=== PATIENT | male | born 1940 | race Caucasian/White ===

== ENCOUNTER 2019-05-12 01:50 | Day surgery (SDC) | payer MEDICARE, SELFPAY ==
[2019-05-05 13:26] VITALS: BMI 26.9
[2019-05-12 06:34] VITALS: BP 154/90; PULSE 70; RESP 18; TEMP 36.8; O2SAT 97
[2019-05-12] MEDS: LACTATED RINGERS 1,000 ML 150 ML IV CONT (06:40)
--- NOTE | 2019-05-12 07:02 | P.PNAN_ITS ---
Anes - Initial Pre Proc Eval Procedure: Operation Date: 05/12/19 07:30 Proposed Procedures p Screening Colonoscopy - Mariano Culp MD Date/Time: 05/12/19 07:02 Surgeon: Mariano Culp MD Pre Op Diagnosis: Neoplasm Screening Patient Data Age: 78 Gender: M Height: 1.78 m Weight: 86.9 kg Last Vital Signs Temp 36.8 C 05/12/19 06:34 Pulse 70 05/12/19 06:34 Resp 18 05/12/19 06:34 BP 154/90 H 05/12/19 06:34 Pulse Ox 97 05/12/19 06:34 Allergies Allergy/AdvReac Type Severity Reaction Status Date / Time No Known Allergies Allergy Verified 05/05/19 13:20 Home Medications Medication Instructions Recorded Confirmed Type ascorbic acid (vitamin C) [Vitamin 1 g PO DAILY 05/05/19 05/05/19 History C] cholecalciferol (vitamin D3) 2,000 unit PO DAILY 05/05/19 05/05/19 History [Vitamin D3] cyanocobalamin (vitamin B-12) 1,000 mcg PO DAILY 05/05/19 05/05/19 History [Vitamin B-12] dextroamphetamine-amphetamine 30 mg PO QAM 05/05/19 05/05/19 History [Adderall XR] dextroamphetamine-amphetamine 10 mg PO BID 05/05/19 05/05/19 History [Adderall] donepezil 10 mg PO DAILY 05/05/19 05/05/19 History escitalopram oxalate 10 mg PO DAILY 05/05/19 05/05/19 History tamsulosin 0.4 mg PO DAILY 05/05/19 05/05/19 History Patient hx anesthesia problems: none Family hx anesthesia problems: none [facility] Past Medical History Medical History (Updated 05/12/19 @ 07:03 by David Mann MD) Alzheimer's disease Anxiety Depression Narcolepsy Social History Social History Smoking status: Former smoker Smoking end date: 04/07/98 Alcohol intake: current Anes - Eval Final PreProcedure Day of Procedure 05/12/19 07:02 Patient weight: overweight Heart: regular rate and rhythm Lungs: clear to auscultation and normal air movement Airway: Mallampati scale class II Neurological: alert and oriented Last oral intake: >/= 8 hours ASA classification: III Emergent: no Anesthetic plan: proceed Anesthesia type and monitoring: general GIVS Informed Consent: The patient's anesthetic plan and its attendant risks and benefits were discussed with the patient/family/POA. Questions were solicited and answers provided to the satisfaction of the patient/family/POA.
--- NOTE | 2019-05-12 07:35 | WPDGICN ---
Assessment and Plan Additional Plan This is a 78-year-old white male patient seen in evaluation at the request of Dr. Armando Logan. Patient presents for neoplasia screening. His current weight appetite bowel movements normal. He denies any blood in his stools. Denies any weight loss. His bowel habits are regular. Family history is noncontributory. Past medical history is significant for L rangel dementia. Medications include Adderall. Aricept. Lexapro. Flomax. No known drug allergies. Physical exam reveals patient to be alert. Vital signs stable. HEENT exam unremarkable. Lungs are clear to auscultation and percussion. Heart is without murmur or extra sounds. Abdominal exam bowel sounds are present soft nontender with no hepatosplenomegaly. Digital external rectal exam is normal. Impression 1. Neoplasia screening. Advised because of patient's age. Colonoscopy will be performed. 2. Dementia. Plan is to proceed with screening colonoscopy. GI Consult Note Consult date/time: 05/12/19 07:35 HPI: Greg Cardoso is a 78 year old male [facility] Past Medical History Medical History (Updated 05/12/19 @ 07:03 by David Mann MD) Alzheimer's disease Anxiety Depression Narcolepsy Social History Social History Smoking status: Former smoker Smoking end date: 04/07/98 Alcohol intake: current Meds Home Medications and Allergies Home Medications Medication Instructions Recorded Confirmed Type ascorbic acid (vitamin C) [Vitamin 1 g PO DAILY 05/05/19 05/05/19 History C] cholecalciferol (vitamin D3) 2,000 unit PO DAILY 05/05/19 05/05/19 History [Vitamin D3] cyanocobalamin (vitamin B-12) 1,000 mcg PO DAILY 05/05/19 05/05/19 History [Vitamin B-12] dextroamphetamine-amphetamine 30 mg PO QAM 05/05/19 05/05/19 History [Adderall XR] dextroamphetamine-amphetamine 10 mg PO BID 05/05/19 05/05/19 History [Adderall] donepezil 10 mg PO DAILY 05/05/19 05/05/19 History escitalopram oxalate 10 mg PO DAILY 05/05/19 05/05/19 History tamsulosin 0.4 mg PO DAILY 05/05/19 05/05/19 History Allergies Allergy/AdvReac Type Severity Reaction Status Date / Time No Known Allergies Allergy Verified 05/05/19 13:20 Vital Signs Vital Signs - 24 hr 05/12/19 06:34 Temperature 36.8 C Pulse Rate 70 Respiratory Rate 18 Blood Pressure 154/90 H Pulse Oximetry 97
[2019-05-12 07:58] VITALS: BP 92/63; PULSE 87; RESP 20; O2SAT 93
[2019-05-12 08:08] VITALS: BP 93/68; PULSE 82; RESP 20; O2SAT 98
[2019-05-12 08:18] VITALS: BP 104/70; PULSE 60; RESP 20; O2SAT 98
== END 2019-05-12 08:30 | disposition home or self-care (01) ==
PROVIDERS: PCP Internal Medicine; Visit Provider Internal Medicine Gastroenterology
PROC: 0DJD8ZZ Inspection of Lower Intestinal Tract, Via Natural or Artificial Opening Endoscopic (ICD-10-PCS; CPT 45378; principal; 2019-05-12 07:30)
DX: Z12.11 Encounter for screening for malignant neoplasm of colon (principal); D12.8 Benign neoplasm of rectum; K57.30 Diverticulosis of large intestine without perforation or abscess without bleeding; K64.8 Other hemorrhoids; G30.9 Alzheimer's disease, unspecified; F02.80 Dementia in other diseases classified elsewhere, unspecified severity, without behavioral disturbance, psychotic disturbance, mood disturbance, and anxiety; G47.419 Narcolepsy without cataplexy; F41.8 Other specified anxiety disorders; Z87.891 Personal history of nicotine dependence
CPT/HCPCS: 45385; 88305; J2001; J2704; J7120

== ENCOUNTER 2022-04-22 13:15 | Outpatient (RCR) | payer MEDICARE, SELFPAY ==
--- NOTE | 2022-01-25 16:44 | PTOPEVAL1 ---
Assessment and note entered by Chelsea Chery, PT, DPT Evaluation Information Assessment Status Evaluation Diagnosis dementia, Parkinsons Subjective Information Per pt he has had dementia for many years. Last year they began to see the symptoms of Parkinsons. They intended to have therapy services in October of this year, but he acquired Covid and was in a state of delirium for a while. He is now very deconditioned. She states in the spring he was able to walk on the treadmill, go up and down steps, and had better safety awareness. Per pts , he has had 3 falls to the floor because he does not reach back for the chair prior to sitting . Pt was started on a Parkinson medication but it did not react well when he was in his delirious state so he was taken off it. He is also not able to get out of bed on his own. Reported Pain Level Pain Score 0: Self Report Assessment PT Clinical Summary Greg presents to therapy today along with his Arpita for his initial evaluation with a diagnosis of Parkinson's and Dementia. Today he demonstrates a festinating gait with a short, staggered, and shuffling gait pattern. He has a significantly decreased gait speed but short bouts of improved gait speed. Formal strength assessments where unable to be performed this date d/t cognitive impairments and his inability to follow directions. Through functional assessment, he is able to stand from a chair with hand held assist only being used for cueing of the motion. He requires Min A for sit <> supine as well but again, hand held assist is used for cueing more than force production. Skilled physical therapy services are indicated to promote safety, for caregiver education, to improve gait, and to teach home exercise with caregiver assist. Plan of Care Interventions Gait Training,Neuro Re-education,Patient/Caregiver Educati,Therapeutic Activities,Therapeutic Exercise PT Services Indicated Yes Treatment Frequency and 2x/wk for 4 wks Duration These treatments will address the objective and functional deficits as defined above. The patient will be advanced safely and appropriately in order for the patient to progress towards his/her prior level of function. Additional exercises will be introduced and as well as a comprehensive home exercise program upon discharge, if needed, ?to ensure carryover of functional gains achieved in the clinic. This treatment plan has been reviewed and agreement upon by the patient.
--- NOTE | 2022-01-28 14:46 | OTOPEVAL1 ---
Assessment and note entered by Radha Amezcua OTR/Brigida Evaluation Information Assessment Status Evaluation Subjective Information Patient has a diagnosis of Parkinson since 2020. Patient's R UE is tighter than the left and patient tends to keep hand clenched for the past 6 months. Because of hand clenching patient has difficulty with grasping for chairs or pushing from a chair, grab bars, gripping pants to don/ doff. Patient's would like patient to use hand more to assist with reaching for chairs, dressing. Reported Pain Level Pain Score Mild Pain: Jose Green Additional Pain Score Comments Patient reports pain with finger extension Assessment OT Clinical Summary Greg is a 81 year old male with a history of dementia and Parkinson disease presenting to outpatient OT for decreased functional use, strength, and active ROM of R UE. Patient demonstrates gross stiffness of the R UE hand, decreased strength of the R UE and active ROM. Patient's reports patient has difficulty with using R hand to participate in UE/LE dressing tasks in addition to safely reaching for grab bars and chairs during transfers. Patient would benefit from skilled OT in order to improve UE active ROM, strengthening, kinesthetic awareness during functional tasks in order to optimize participation with functional and daily tasks. Plan of Care Interventions Therapeutic Exercise,Manual Therapy,Therapeutic Activities OT Services Indicated Yes Treatment Frequency and 1x/week for 4 weeks Duration These treatments will address the objective and functional deficits as defined above. The patient will be advanced safely and appropriately in order for the patient to progress towards his/her prior level of function. Additional exercises will be introduced and as well as a comprehensive home exercise program upon discharge, if needed, ?to ensure carryover of functional gains achieved in the clinic. This treatment plan has been reviewed and agreement upon by the patient.
--- NOTE | 2022-03-01 15:41 | PTOPPROG ---
Assessment and note entered by Chelsea Chery, PT, DPT Evaluation Information Assessment Status Progress Diagnosis dementia, Parkinson Subjective Information Pts states she has noticed an improvement in his mobility. She states Greg's safety awareness fluctuates along with his dementia. She states his hand has been opening a lot more often and with more ease. She states the neurologist has increased his Parkinson's medication this past week and will make another increase next week. Assessment PT Clinical Summary Greg presents to therapy today following 4 visits of skilled therapy and participation in a home exercise program. Today he demonstrates inconsistent improvement. Due to his dementia, his ability to follow directions and respond to cues varies daily, this makes his progress in consistent. Continuation of skilled physical therapy services are indicated once his Parkinson' s medication has been increased to improve safety, improve mobility, and to be able to better instruct his in a suitable HEP. Plan of Care Interventions Gait Training,Neuro Re-education,Patient/Caregiver Educati,Therapeutic Activities,Therapeutic Exercise PT Services Indicated Yes Treatment Frequency and 1x/wk for 4 wks Duration These treatments will address the objective and functional deficits as defined above. The patient will be advanced safely and appropriately in order for the patient to progress towards his/her prior level of function. Additional exercises will be introduced and as well as a comprehensive home exercise program upon discharge, if needed, ?to ensure carryover of functional gains achieved in the clinic. This treatment plan has been reviewed and agreement upon by the patient.
--- NOTE | 2022-03-04 13:19 | OTOPPROG ---
Assessment and note entered by Radha Amezcua OTR/Brigida Evaluation Information Assessment Status Progress Subjective Information Patient has a diagnosis of parkinsons since 2020. Patient's R UE continues to be tight at times and hand is clenched but is less than prior to therapy. Patient continues to have difficulty with remember to grasp for chairs or pushing from a chair, grab bars, gripping pants to don/doff. Patient's reports patient has assisted more with reaching for chair, don coat, use grab bars. On the functional task Likert scale: Using R hand to reach for chair - rated 4/10 improved from 3/10 Using R hand to reach for grab bars - rated 4/10 improved from 3/10 Using R hand to don/doff pants - rated 5/10 improved from 4/10 Using R hand to don/doff shirt - rated 4/10 improved from 3/10 Assessment OT Clinical Summary Greg is a 81 year old male with a history of dementia and Parkinson disease presenting to outpatient OT for re-evaluation for decreased functional use, strength, and active ROM of R UE. Patient demonstrates progress with R UE hand strength, and decreased R UE active ROM. Patient's reports patient has noticed improvements with attempting to use R hand to participate in UE /LE dressing tasks in addition to safely reaching for grab bars and chairs during transfers. Patient able to participate in a functional coordination assessment. Patient would benefit from continued skilled OT in order to improve UE active ROM, strengthening, coordination, kinesthetic awareness during functional tasks in order to optimize participation with functional and daily tasks. Plan of Care Interventions Therapeutic Exercise,Manual Therapy,Therapeutic Activities OT Services Indicated Yes These treatments will address the objective and functional deficits as defined above. The patient will be advanced safely and appropriately in order for the patient to progress towards his/her prior level of function. Additional exercises will be introduced and as well as a comprehensive home exercise program upon discharge, if needed, ?to ensure carryover of functional gains achieved in the clinic. This treatment plan has been reviewed and agreement upon by the patient.
--- NOTE | 2022-03-25 10:03 | PCPTNOTE ---
Patient called & cancelled scheduled appointment this date due to having a change in his medications.
--- NOTE | 2022-04-15 14:33 | OTOPPROG ---
Assessment and note entered by Radha Amezcua OTR/L Evaluation Information Subjective Information Patient has a diagnosis of parkinsons since 2020. Patient's R UE continues to be tight at times and hand is clenched but is loose and relaxed more often. Patient's reports, patient is able to stand from toilet on occasion but not consistently, pushing from a chair, grab bars, gripping pants to don/doff. Patient's reports is continuing to complete HEP at home. On the functional task likert scale: Using R hand to reach for chair - rated 5/10 improved from 4/10 Using R hand to reach for grab bars - rated 6/10 improved from 4/10 Using R hand to don/doff pants - rated 5/10 Using R hand to don/doff shirt - rated 5/10 improved from 4/10 Assessment OT Clinical Summary Greg is a 81 year old male with a history of dementia and parkinsons disease presenting to outpatient OT for re-evaluation for decreased functional use, strength, and active ROM of R UE. Patient demonstrates progress with R UE hand strength, and decreased R UE active ROM. Patient's reports patient has noticed improvements with keeping R UE more relaxed in addition to participating with ADLs including functional transfers from toilet. Patient's fine motor coordination improved through coordination assessment from 170s to 92s. Patient would benefit from continued skilled OT for HEP instruction for and patient, in addition to UE active ROM, strengthening, coordination, kinesthetic awareness during functional tasks in order to optimize participation with functional and daily tasks. Plan of Care Interventions Therapeutic Exercise,Manual Therapy,Therapeutic Activities OT Services Indicated Yes Treatment Frequency and 1x/week for 6 weeks Duration These treatments will address the objective and functional deficits as defined above. The patient will be advanced safely and appropriately in order for the patient to progress towards his/her prior level of function. Additional exercises will be introduced and as well as a comprehensive home exercise program upon discharge, if needed, ?to ensure carryover of functional gains achieved in the clinic. This treatment plan has been reviewed and agreement upon by the patient.
--- NOTE | 2022-04-25 14:56 | PCPTNOTE ---
This treatment is being continued on visit number [id number]. Please see documentation on both accounts to view progress. Completed interventions, outcomes, and problems have been marked as Inactive to facilitate the copying of the Care plan routine for recurring accounts.
--- NOTE | 2022-05-06 13:17 | PCOTNOTE ---
This treatment is being continued on visit number [id number]. Please see documentation on both accounts to view progress. Completed interventions, outcomes, and problems have been marked as Inactive to facilitate the copying of the Care plan routine for recurring accounts.
== END 2022-04-24 11:45 | disposition home or self-care (01) ==
LOC: ANHGOSHOT 13:15
PROVIDERS: PCP Internal Medicine; Visit Provider Nurse Practitioner Family
DX: G31.83 Neurocognitive disorder with Lewy bodies (principal); G20 Parkinson's disease; F02.80 Dementia in other diseases classified elsewhere, unspecified severity, without behavioral disturbance, psychotic disturbance, mood disturbance, and anxiety; R26.89 Other abnormalities of gait and mobility
CPT/HCPCS: 97110; 97112; 97116; 97162; 97165; 97530

== ENCOUNTER 2022-05-31 14:30 | Outpatient (RCR) | payer MEDICARE, SELFPAY ==
--- NOTE | 2022-04-25 14:56 | PCPTNOTE ---
The treatment documented on this account is a continuation of the treatment documented on visit number [id number]. Please see documentation on both accounts to view progress. The Plan of Care has been transitioned and updated within the new V#. I have addressed and agree with the discipline specific Problems, Interventions, and Goals for the current certification period. Completed interventions, outcomes, and problems have been marked as Inactive to facilitate the copying of the Care plan routine for recurring accounts.
--- NOTE | 2022-04-29 16:20 | PTOPPROG ---
Assessment and note entered by Chelsea Chery, PT, DPT Evaluation Information Assessment Status Progress Diagnosis Parkinson Subjective Information Pts states he has currently increased his medication to 3 whole pills a day. She states they are working on his walking and exercises daily. She reports a decreased in fall/missing the chair. She states the last time he slipped out of the chair was around 3 weeks ago. Assessment PT Clinical Summary Greg presents to therapy today for his progress report following 5 visits of skilled therapy to treat the symptoms related to his Parkinson's. Today he demonstrates improved gait speed during the 2 min walk test, 95ft to 320ft. He continues to ambulate with a flexed posture and decreased foot clearing still making him a higher chance for falls. He demonstrates improved safety with getting in/out of a chair. Today his was demonstrated bed mobility skill to aid with transferring in/out of bed. Continuation of further therapy is indicated to promote safety, to progress towards his therapy goals, and to return to baseline function. Plan of Care Interventions Gait Training,Neuro Re-education,Patient/Caregiver Educati,Therapeutic Activities,Therapeutic Exercise,Self-Care/Home Management PT Services Indicated Yes Treatment Frequency and in 1 month for follow up Duration These treatments will address the objective and functional deficits as defined above. The patient will be advanced safely and appropriately in order for the patient to progress towards his/her prior level of function. Additional exercises will be introduced and as well as a comprehensive home exercise program upon discharge, if needed, ?to ensure carryover of functional gains achieved in the clinic. This treatment plan has been reviewed and agreement upon by the patient.
--- NOTE | 2022-05-06 13:16 | PCOTNOTE ---
The treatment documented on this account is a continuation of the treatment documented on visit number [id number]. Please see documentation on both accounts to view progress. The Plan of Care has been transitioned and updated within the new V#. I have addressed and agree with the discipline specific Problems, Interventions, and Goals for the current certification period. Completed interventions, outcomes, and problems have been marked as Inactive to facilitate the copying of the Care plan routine for recurring accounts.
--- NOTE | 2022-05-27 15:01 | OTOPDC ---
Assessment and note entered by Radha Amezcua OTR/Brigida Evaluation Information Subjective Information Patient has a diagnosis of Parkinson's since 2020. Patient's R UE continues to be tight at times but is not tight as much as prior. Patient's reports patient is still on occasion but not consistently able to stand from toilet. Patient's reports pushing from a chair. Patient's reports it is not consistent with gripping pants to assist with don/doff. Complaint with HEP. On the functional task likert scale: Using R hand to reach for chair - rated 7/10 improved from 5/10 Using R hand to reach for grab bars - rated 6/10 Using R hand to don/doff pants - rated 6/10 Improved from 5/10 Using R hand to don/doff shirt - rated 6/10 improved from 5/10 Reported Pain Level Pain Score 0: Self Report Assessment OT Clinical Summary Greg is a 81 year old male with a history of dementia and Parkinson's disease presenting to outpatient OT for re-evaluation for decreased functional use, strength, and active ROM of R UE. Patient demonstrates good functional progress with R UE extractor loader and unloader/pinch, fine motor coordination. At this time, patients biggest limitation to functional progress is his current cognitive status and understanding completing tasks. Patient required frequent cues and redirection to complete tasks. Patient is to be discharged today from skilled OT with goals met and patient's independent with HEP materials. Patient's is agreeable to discharge and is pleased with progress patient has made while in OT. Plan of Care OT Services Indicated No
--- NOTE | 2022-05-31 15:17 | PTOPDC ---
Assessment and note entered by Chelsea Chery, PT, DPT Evaluation Information Assessment Status Discharge Diagnosis Parkinson Subjective Information Pt states his neurologist continues to slowly increasing his Parkinson's medication. She states he is walking on the treadmill for 15 mins at a time. She states he is also able to take himself to/from the bathroom without physical assist. He continues to have no falls in the last month. His states with a combination of treadmill, bike, and exercises they spend over 30 mins a day. Reported Pain Level Pain Score 0: Self Report Assessment PT Clinical Summary Greg presents to therapy today for his progress report following 6 visits of skilled therapy to treat the symptoms related to his Parkinson's. Today he demonstrates gait that is free of deviations. He has met or progressed well towards his therapy goals. Bed mobility was reviewed and cues were given to pt and his to aid in transitions. He no longer requires skilled therapy at this time and will be discharged. Plan of Care PT Services Indicated Yes Treatment Frequency and to be discharged Duration
== END 2022-05-31 15:40 | disposition home or self-care (01) ==
LOC: ANHGOSHPT 14:30
PROVIDERS: PCP Internal Medicine; Visit Provider Internal Medicine
DX: G20 Parkinson's disease (principal); G31.83 Neurocognitive disorder with Lewy bodies; F02.80 Dementia in other diseases classified elsewhere, unspecified severity, without behavioral disturbance, psychotic disturbance, mood disturbance, and anxiety; R26.89 Other abnormalities of gait and mobility
CPT/HCPCS: 97110; 97112; 97530

== ENCOUNTER 2024-01-04 13:11 | Emergency (ER) | payer MEDICARE, SELFPAY ==
--- NOTE | ~2024-01-04 | XR_ITS ---
XR chest 1V portable Ordering provider: Errol Richard MD History: 83 years Male with . syncope . Comparison: None. FINDINGS: MEDIASTINUM: The cardiac silhouette is not enlarged. LUNGS: No infiltrates, effusions or pneumothorax. OTHER: No free air under the diaphragm. IMPRESSION: No acute cardiopulmonary pathology. Reviewed, dictated and finalized at location A.
[2024-01-04 13:01] VITALS: BP 124/69; PULSE 73; RESP 16; TEMP 36.2; O2SAT 96
[2024-01-04 13:14] VITALS: PULSE 61
--- NOTE | 2024-01-04 13:15 | ECG_ITS ---
Test Date: 2024-01-04 13:13:39 Measurements Intervals Chama Rate: 60 P: 45 WA: 160 QRS: 2 QRSD: 106 T: 52 QT: 436 QTc: 437 Interpretive Statements SINUS RHYTHM INCOMPLETE RIGHT BUNDLE BRANCH BLOCK CANNOT R/O SEPTAL INFARCT, AGE INDETERMINATE BASELINE ARTIFACT- I, II, III, AVR, AVL, AVF, V1-V6 ABNORMAL ECG No previous ECG available for comparison Electronically Signed On 01-04-2024 15:36:21 CDT by Conrado Ospina D.O.
[2024-01-04 13:23] LABS: Glucose Point of Care 119 mg/dl (65-105)
[2024-01-04 13:36] LABS: Basophils Percent Auto 0.3 % (0.2-1.2); Eosinophils Absolute Auto 0.1 K/mm3 (0-0.3); Hematocrit 33.5 % (42.0-52.0); Hemoglobin 11.3 g/dL (14.0-18.0); Immature Granulocyte Absolute 0.02 K/mm3 (0.00-0.031); Immature Granulocyte Percent A 0.3 % (0-0.5); Lymphocytes Absolute Auto 1.59 K/mm3 (0.9-3.2); Lymphocytes Percent Auto 27.3 % (18.3-44.2); Mean Corpuscular HGB Conc 33.7 g/dl (32-36); Mean Corpuscular Hemoglobin 32.9 pg (26-34); Mean Corpuscular Volume 97.7 fl (80-100); Mean Platelet Volume 10.8 fl (7.4-10.4); Monocytes Absolute Auto 0.5 K/mm3 (0.1-0.6); Monocytes Percent Auto 9.3 % (2.6-8.5); Neutrophils Absolute Auto 3.6 K/mm3 (1.3-6.7); Neutrophils Percent Auto 61.8 % (45.5-73.1); Platelet Count Result 184 k/mm3 (150-375); Red Blood Count 3.43 M/mm3 (4.6-6.20); Red Cell Distribution Width 13.2 % (11.5-14.5); White Blood Count 5.8 K/mm3 (4.5-10.0)
[2024-01-04 13:47] LABS: Alanine Aminotransferase 6 U/L (6-50); Albumin Level 3.9 g/dL (3.5-5.1); Alkaline Phosphatase 70 U/L (38-126); Anion Gap 9 mmol/L (4-12); Aspartate Amino Transferase 31 U/L (17-59); Bilirubin,Total 0.5 mg/dL (0.2-1.3); Blood Urea Nitrogen 29 mg/dL (9-20); Calcium 8.7 mg/dL (8.4-10.2); Carbon Dioxide 20 mmol/L (22-30); Chloride 106 mmol/L (98-107); Estimated CRCL calculation 65 ml/min; Estimated Glomerular Filt Rate > 60; Glucose 117 mg/dL (65-110); Sodium 135 mmol/L (137-145)
[2024-01-04 13:52] LABS: Add Urine Microscopic? YES; Appearance Urine Clear (Clear); Bacteria Urine 4+ /hpf; Bilirubin Urine Negative (Negative); Blood Urine Negative (Negative); Color Urine Yellow (Yellow); Glucose Urine UA Negative (Negative); Hyaline Casts Urine Present /lpf; Ketones Urine Trace mg/dL (Negative); Leukocyte Esterase Ur 1+ LEU/UL (Negative); Need Manual Microscopic Reviewed; Nitrate Urine Negative (Negative); Non Pathogenic Casts 0-2; Protein Urine Negative (Negative); RBC Urine 0-2 /hpf (0-2); Specific Grav Ur 1.025 (1.001-1.035); Squamous Epithelial Cell Urine None Seen /hpf (Few)
[2024-01-04 13:52] LABS: Prothrombin Time 13.9 Seconds (11.1-14.7)
[2024-01-04 13:53] LABS: Partial Thromboplastin Time 22.2 Seconds (22.3-36.8)
--- NOTE | 2024-01-04 14:03 | ED.AMS ---
HPI - Altered Mental Status General Chief Complaint: Altered Mental Status Stated Complaint: ams Time Seen by Provider: 01/04/24 13:30 History of Present Illness HPI narrative: 83-year-old male present to the emergency department for evaluation after having a prolonged syncopal episode. Patient does have history of Lewy body dementia and Parkinson's disease and is cared for by his at home. states that he often does have issues with orthostatic hypotension in sometimes get dizzy when he stands up and she will often lower him back down until he recovers and then things are fine after that. They were out at lunch when her and a group of friends help to stand him up and she suspects maybe they started walking to quickly and patient became weak in need to be lowered to the ground. is very confident that the patient did not have any injuries as result of this. She states that he was lowered to the ground and did not fall to the ground. states that even after laying flat on the ground that it still took approximately 2 minutes for the patient to return to his normal baseline. She states that after the 2 minutes he open his eyes and did say hello to her. Emergency department patient is and his normal neuro baseline and patient denies any pain or complaints. states the patient is DNI DNR. states patient does not have a prior history of urinary tract infection. Related Data Home Medications Medication Instructions Recorded Confirmed donepezil 10 mg tablet 10 mg PO DAILY 05/05/19 11/26/23 carbidopa 25 mg-levodopa 100 mg 1 tablet PO TID 05/24/22 11/26/23 tablet memantine 10 mg tablet 10 mg PO BID 05/24/22 11/26/23 rasagiline 0.5 mg tablet 0.5 mg PO DAILY 05/24/22 11/26/23 escitalopram oxalate 10 mg tablet 10 mg PO BID 05/29/23 11/26/23 Allergies Allergy/AdvReac Type Severity Reaction Status Date / Time No Known Allergies Allergy Verified 11/26/23 14:26 Review of Systems Review of Systems: All systems reviewed & are unremarkable except as noted in HPI and below PMFSH Past Medical History Medical History Abscess of left shoulder Anxiety BPH without urinary obstruction Depression Encounter for other specified surgical aftercare Encounter for surgical aftercare following surgery on the skin and subcutaneous tissue (11/11/17) Incarcerated ventral hernia Lewy body dementia 2017 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 Parkinson's disease 2021 Sebaceous cyst Surgical History Surgical History History of umbilical hernia repair Social History Social History Smoking status: Former smoker Tobacco type: cigarettes Second hand tobacco smoke exposure: No Smoking end date: 04/07/98 Alcohol intake: current Substance use: never Substance use type: does not use Lack of Transportation: No Lack of Food: Never True Current Housing: I Have Housing Concerned About Future Housing: No Difficulty Paying Gas/Electric Bills: No Difficulty Paying for Meds: No Currently Unemployed: No Education: High School Diploma/GED Difficulty w/ Childcare or Family Care: No Living arrangements: assisted living Occupation/Education: retired Gender identity (if verbalized by the patient): Male Sexual Orientation (if Verbalized by the Patient): Straight or Heterosexual Exam Narrative: APPEARANCE: Well appearing, no pain, no distress, well-nourished. HEAD: normocephalic, atraumatic. EYES: PERRLA/EOMI, conjunctivae clear. NOSE: Normal no drainage EARS:TMS clear with good light reflex. THROAT: Pharynx clear, no exudate. NECK: Supple. No adenopathy, no masses. RESPIRATORY: Airway patent, respirations nonlabored. Clear to auscultation bilaterally, no rales, rhonchi, wheezing. CARDIOVASCULAR: R
[2024-01-04 14:19] LABS: Magnesium 2.2 mg/dL (1.6-2.3)
[2024-01-04 14:58] LABS: Influenza A QL RT-PCR Negative (Negative); Influenza B QL RT-PCR Negative (Negative); RSV RNA, RT-PCR Negative (Negative); SARS-CoV-2 RNA PCR Negative (Negative)
[2024-01-04 15:23] VITALS: BP 154/89; PULSE 65; RESP 13; O2SAT 100
== END 2024-01-04 16:10 | disposition home or self-care (01) ==
PROVIDERS: Emergency Medicine; Emergency Provider Emergency Medicine; PCP Physician Assistant Medical
DX: R55 Syncope and collapse (principal); N39.0 Urinary tract infection, site not specified; G31.83 Neurocognitive disorder with Lewy bodies; F02.80 Dementia in other diseases classified elsewhere, unspecified severity, without behavioral disturbance, psychotic disturbance, mood disturbance, and anxiety; G20.A1 Parkinson's disease without dyskinesia, without mention of fluctuations; F41.8 Other specified anxiety disorders; Z87.891 Personal history of nicotine dependence; Z20.822 Contact with and (suspected) exposure to COVID-19
CPT/HCPCS: 36415; 71045; 80053; 81001; 82948; 83735; 84443; 85025; 85610; 85730; 87077; 87086; 87088; 87186; 87637; 93005; 96365; 99284; J0696